=== PATIENT | male | born 1990 | race Caucasian/White ===

== ENCOUNTER 2024-05-31 13:49 | Emergency (ER) | payer OTHER, BC, SELFPAY ==
[2024-05-31 13:50] VITALS: BP 154/124; PULSE 79; RESP 15; TEMP 36.6; O2SAT 98
[2024-05-31 14:02] VITALS: BMI 30.2
--- NOTE | 2024-05-31 14:30 | EX.ED.GENINJ ---
HPI History of Present Illness Chief Complaint: Back Detail of Chief Complaint: Back injury Informant: patient Narrative Narrative: Patient presents the emergency department complaint of back injury that occurred today. Patient states that he was at work carrying toilets all day. He had walked a hot water tank up steps and when he went to set it down when he tried to stand back up had severe pain in his back and went down to his knees. Had to crawl and then lay on his back for some time. Somebody finally helped him up and he was able to ambulate with assistance to the car. Patient denies any pain down the legs. He denies numbness or tingling in the legs. He said no urinary symptoms. Currently rates pain a 10 out of 10 [facility] Medical History (Updated 05/31/24 @ 15:[address] Jazmine Greene, DO) Panic attack Home Medications ?Medication ?Instructions ?Recorded ?Last Taken ?Type diazepam 5 mg tablet (Valium) 5 mg PO TID PRN muscle spasm #10 05/31/24 Unknown Rx tabs hydrocodone-acetaminophen 5-325mg 1 tab PO Q4H PRN PRN Pain 2 days 05/31/24 Unknown Rx 5mg-325mg #10 TABLETS naproxen 500 mg tablet (Naprosyn) 500 mg PO BID PRN pain #20 tabs 05/31/24 Unknown Rx Allergy/AdvReac Type Severity Reaction Status Date / Time No Known Allergies Allergy Verified 05/31/24 13:50 Social History Smoking Status: Never smoker ROS ROS ED Review of Systems ROS Unobtainable: other Constitutional Constitutional ED: Reports lethargy; Denies chills, fever(s), sweats or weight loss Eyes Eyes: Denies blurry vision, change in vision or diplopia ENT ENT ED: Denies rhinorrhea or sore throat Cardiovascular Cardiovascular: Denies chest pain, orthopnea or racing heartbeat Respiratory/Chest Respiratory/Chest: Denies cough, dyspnea, dyspnea on exertion, orthopnea or sputum Gastrointestinal Gastrointestinal: Denies abdominal pain, diarrhea, nausea or vomiting Genitourinary Genitourinary ED: Denies dysuria, hematuria or urinary frequency Musculoskeletal Musculoskeletal: Reports back pain; Denies arthralgias, myalgias or neck pain Integumentary Denies abscess, Abrasions or rash Neurologic Neurologic: Denies headache(s) or weakness Psychiatric Psychiatric: Denies anxiety, depression or suicidal thoughts Endocrine Endocrinology: Denies polydipsia, polyphagia or polyuria Hematologic/Lymphatic Hematologic/Lymphatic: Denies easy bleeding, easy bruising or lymphadenopathy Allergic/Immunologic Allergic/Immunologic ED: Denies mouth swelling, tongue swelling or urticaria EXAM Physical Exam Const Vital Signs: 05/31/24 13:50 05/31/24 14:49 05/31/24 15:39 Temperature 98 F 97.7 F L Temperature Source Oral Pulse Rate 79 74 74 Respiratory Rate 15 18 18 Blood Pressure 154/124 H 130/72 H Blood Pressure Mean 134 91 Pulse Ox 98 97 97 Oxygen Delivery Method Room Air Room Air Positive well nourished and well developed General Appearance ED: well developed and NAD HEENT Reports TM's clear and moist mucous membranes normocephalic and atraumatic; Negative for trauma or tenderness Tympanic Membrane ED: Yes TM's clear Eyes PERRL and EOMs intact bilaterally General Eye ED: Negative for pale conjunctiva or scleral icterus Neck no lymphadenopathy, supple and no JVD General: Negative for tenderness Chest Wall inspection of chest normal and palpation of chest normal Chest: Negative for tenderness Resp normal respiratory effort and clear to auscultation bilaterally Effort and Inspection: Negative for respiratory distress or pain with movement Auscultation: Negative for rhonchi, wheezes or diminished lung sounds Cardio regular rate, regular rhythm, S1 normal heart sound, S2 normal heart sound and no murmurs Peripheral Pulses: pulses 2+ throughout GI normal to inspection, nondistended, normoactive bowel sounds, soft to palpation, non-tender, non-distended and no masses Back/Spine no CVA tenderness Back/Spine Narrative: Mild tenderness palpation over the lower lumbar spine. No bony step-offs or depressions. Mild diffuse spasm to the bilateral lumbar paraspinal musculature. Pain with straight leg raising bilaterally. Deep tendon reflexes plus 2 out of 4 bilaterally at the patella and Achilles. Patient has normal L5 extension. Patient has normal sensation to light touch. Extremity normal to inspection General Extremety ED: Negative for edema General Extremity: Negative for edema Neuro oriented x3, CN's II-XII intact bilaterally, no sensory deficits noted and gait normal Sensorium / Orientation: awake, alert, oriented to person, oriented to place and oriented to time Motor Exam: strength 5/5 throughout and strength abnormal Psych mental status grossly normal Skin no rashes or lesions noted and no wounds MDM MDM MDM Narrative Medical decision making narrative: Patient presents with back injury that occurred while at work. We had x-rays of the lumbar spine 2 views obtained interpreted by myself as no evidence of fracture or acute disease process. Official report from radiology will be pending. Patient was medicated with Valium as well as Toradol and Dilaudid and he had some pain relief with that. At this point suspect likely a lumbar strain and muscle spasm. Recommend follow-up with corporate care in 3 to 5 days. Will write him off work for 2 days and given work restrictions. Advised to return if pain down the legs or weakness in extremities, change in bowel or bladder function, loss of sensation in the groin, or condition should worsen anyway. Currently no evidence for cauda equina or radiculopathic signs or symptoms. Radiography Diagnostic Testin view x-rays of the lumbar spine obtained interpreted by myself as no evidence of fracture or dislocation Discharge Plan Triage Chief Complaint: Back ED Provider: Jazmine Greene Dx/Rx/DC Orders Clinical Impression: Lumbar strain Instructions: ED Back Sprain/Strain Prescriptions: New hydrocodone-acetaminophen 5-325 mg tablet 1 tab PO Q4H PRN PRN (Reason: Pain) 2 Days Qty: 10 0RF naproxen [Naprosyn] 500 mg tablet 500 mg PO BID PRN (Reason: pain) Qty: 20 0RF diazepam [Valium] 5 mg tablet 5 mg PO TID PRN (Reason: muscle spasm) Qty: 10 0RF Primary Care Provider: Care Physician,No Primary Referrals: Care Physician,No Primary [Primary Care Provider] - Print Language: German Disposition Disposition: Home, Self Care
[2024-05-31] MEDS: diazePAM 5 MG Tablet PO (14:39)
[2024-05-31] MEDS: Ketorolac 60 MG/2 ML Vial IM (14:40)
[2024-05-31] MEDS: HYDROmorphone 1 MG/ML Syringe IM (14:42)
[2024-05-31 14:49] VITALS: PULSE 74; RESP 18; O2SAT 97
[2024-05-31] MEDS: Ondansetron 4 MG/2 ML Vial IM (15:00)
--- NOTE | 2024-05-31 15:10 | RAD_ITS ---
EXAM: XR LUMBOSACRAL SPINE, 2 OR 3 VIEWS CLINICAL INDICATION: back injury TECHNIQUE: Frontal and lateral views of the lumbar spine and sacrum. COMPARISON: No relevant prior studies available. FINDINGS: VERTEBRAE: Unremarkable. Preserved vertebral body height. No fracture. No spondylolisthesis. Preservation of the normal lumbar lordosis. No significant facet arthropathy. DISC SPACES: No acute findings. Disc spaces are maintained. GASTROINTESTINAL TRACT: Unremarkable as visualized. Included bowel gas pattern is non-obstructive. RAD/Lumbar Spine 2 or 3 Views IMPRESSION: No evidence of lumbar spinal fracture or spondylolisthesis. Electronically Signed: Stiven Griffin MD at 16:58 EST ,
[2024-05-31 15:39] VITALS: BP 130/72; PULSE 74; RESP 18; TEMP 36.5; O2SAT 97
== END 2024-05-31 15:59 | disposition home or self-care (01) ==
PROVIDERS: Emergency Provider Emergency Medicine; Visit Provider Emergency Medicine
DX: S39.012A Strain of muscle, fascia and tendon of lower back, initial encounter (principal); X58.XXXA Exposure to other specified factors, initial encounter
CPT/HCPCS: 72100; 96372; 99283; J2405